=== PATIENT | female | born 1990 | race Caucasian/White ===

== ENCOUNTER 2018-03-21 18:36 | Emergency (ER) | payer MEDICAID, OTHER ==
[~2018-03-21] VITALS: Ht 157.5 cm; Wt 77.1 kg
[2018-03-21 18:50] VITALS: BP_SYST 141
[2018-03-21 19:37] LABS: BASOPHILS # (AUTO) 0.1 K/uL (0.0-0.2); EOSINOPHILS # (AUTO) 0.2 K/uL (0.0-0.4); EOSINOPHILS % (AUTO) 3.4 % (0.0-4.0); HEMATOCRIT 38.5 % (36-48); LYMPHOCYTES # (AUTO) 2.2 K/uL (1.0-5.5); LYMPHOCYTES % (AUTO) 31.8 % (20.5-51.5); MEAN CORPUSCULAR HEMOGLOBIN 27 pg (27-31); MEAN CORPUSCULAR HGB CONC 34 % (32-36); MEAN CORPUSCULAR VOLUME 82 fL (79.0-98.0); MONOCYTES # (AUTO) 0.3 K/uL (0.0-1.0); MONOCYTES % (AUTO) 5.1 % (1.7-9.3); NEUTROPHILS % (AUTO) 58.7 % (40.0-70.0); PLATELET COUNT (AUTO) 323 K/uL (130-430); RED BLOOD CELL COUNT(AUTO) 4.73 MIL/uL (4.2-6.2); RED CELL DISTRIBUTION WIDTH 13.7 % (9.0-15.0); WHITE BLOOD COUNT (AUTO) 6.8 K/uL (4.8-10.8)
[2018-03-21] MEDS ORDERED: cefTRIAXone 1 GM in LIDOCAINE 1%, 20 ML MDV 2.1 ML IM ONE (19:45)
[2018-03-21] MEDS ORDERED: IBUPROFEN 800 MG TABLET PO ONE (19:45)
[2018-03-21 19:54] LABS: CALCIUM 8.9 mg/dL (8.4-11.0); CREATININE 0.83 mg/dL (0.55-1.30); POTASSIUM 3.8 mmol/L (3.5-5.1)
[2018-03-21 20:11] VITALS: BP_SYST 132
== END 2018-03-21 20:11 | disposition home or self-care (01) ==
LOC: SED 18:36
DX: H66.92 Otitis media, unspecified, left ear (principal); H60.502 Unspecified acute noninfective otitis externa, left ear; R03.0 Elevated blood-pressure reading, without diagnosis of hypertension
CPT/HCPCS: 36415; 80048; 85025; 96372; 99284; J0696; J2001

== ENCOUNTER 2018-06-23 08:07 | Emergency (ER) | payer MEDICAID, OTHER ==
[~2018-06-23] VITALS: Ht 157.5 cm; Wt 83.9 kg
[2018-06-23 08:07] VITALS: BP_SYST 131
--- NOTE | 2018-06-23 08:07 | NUR ---
BROUGHT BACK TO BED #8 AND TRIAGED. REPORT GIVEN TO CHERI
--- NOTE | 2018-06-23 08:22 | NUR ---
MD HURST AT BEDSIDE.
--- NOTE | 2018-06-23 08:44 | NUR ---
PATIENT TAKEN TO X-RAY.
[2018-06-23] MEDS ORDERED: LIDOCAINE 1% 10 MG/ML, 20 ML MDV INJ ONE (08:45)
[2018-06-23] MEDS ORDERED: LIDOCAINE MPF 1% 50 MG/5 ML AMP INJ ONE (08:45)
--- NOTE | 2018-06-23 09:08 | NUR ---
Medication given by MD orona at bedside.
[2018-06-23 09:40] VITALS: BP_SYST 131
--- NOTE | 2018-06-23 09:40 | NUR ---
Thumb spice velcro splint applied to left wrist.
--- NOTE | 2018-06-23 09:46 | NUR ---
Patient given written and verbal discharge instructions and verbalizes understanding. ER MD discussed with patient the results and treatment provided. Patient in stable condition. ID arm band removed. Rx of Naproxen given. Patient educated on pain management and to follow up with PMD. Pain Scale . Opportunity for questions provided and answered. Medication side effect fact sheet provided.
== END 2018-06-23 09:46 | disposition home or self-care (01) ==
LOC: SED 08:07
DX: M67.432 Ganglion, left wrist (principal); M65.4 Radial styloid tenosynovitis [de Quervain]
CPT/HCPCS: 20612; 29130; 73100; 99284; J2001

== ENCOUNTER 2020-08-02 15:56 | Emergency (ER) | payer MEDICAID, OTHER ==
[~2020-08-02] VITALS: Ht 157.5 cm; Wt 84.4 kg
[2020-08-02 16:03] VITALS: BP_SYST 130
--- NOTE | 2020-08-02 16:03 | NUR ---
PPatient to ER bed 8 to gown for evaluation. Side rails up. Report given to KATHERINE HOWARD.
--- NOTE | 2020-08-02 16:05 | NUR ---
Patient presented to ER C/O of Facial numbness. Patient ambulatory to ER, A&Ox4, afebrile, skin pink & warm, pain 4/10, denies N/V/D Patient states lip numbness x2 days, chin & forehead numbness started today, forehead pain 4/10.
--- NOTE | 2020-08-02 16:08 | NUR ---
ER at bedside examining patient.
--- NOTE | 2020-08-02 17:35 | NUR ---
ER Dr. Najera at bedside discussing treatment with patient.
[2020-08-02 17:45] VITALS: BP_SYST 131
--- NOTE | 2020-08-02 17:45 | NUR ---
Patient given written and verbal discharge instructions and verbalizes understanding. ER MD discussed with patient the results and treatment provided. Patient in stable condition. ID arm band removed. NO Rx given. Patient educated on pain management and to follow up with PMD. Pain Scale 3/10. Opportunity for questions provided and answered. Medication side effect fact sheet provided.
== END 2020-08-02 17:45 | disposition home or self-care (01) ==
LOC: SED 15:56
DX: R20.0 Anesthesia of skin (principal)
CPT/HCPCS: 70450-TC; 76376; 99284

== ENCOUNTER 2020-10-06 13:18 | Emergency (ER) | payer MEDICAID ==
[~2020-10-06] VITALS: Ht 157.5 cm; Wt 74.8 kg
[2020-10-06 13:33] VITALS: BP_SYST 125
[2020-10-06 14:13] LABS: BASOPHILS # (AUTO) 0.1 K/uL (0.0-0.2); BASOPHILS % (AUTO) 0.9 % (0.0-2.0); EOSINOPHILS # (AUTO) 0.1 K/uL (0.0-0.4); EOSINOPHILS % (AUTO) 2.2 % (0.0-4.0); HEMATOCRIT 37.1 % (36-48); HEMOGLOBIN 12.4 g/dL (12.0-16.0); LYMPHOCYTES # (AUTO) 1.4 K/uL (1.0-5.5); LYMPHOCYTES % (AUTO) 21.4 % (20.5-51.5); MEAN CORPUSCULAR HEMOGLOBIN 28 pg (27-31); MEAN CORPUSCULAR HGB CONC 34 % (32-36); MEAN CORPUSCULAR VOLUME 84 fL (79.0-98.0); MONOCYTES # (AUTO) 0.4 K/uL (0.0-1.0); MONOCYTES % (AUTO) 5.8 % (1.7-9.3); NEUTROPHILS # (AUTO) 4.5 K/uL (1.8-7.7); NEUTROPHILS % (AUTO) 69.7 % (40.0-70.0); PLATELET COUNT (AUTO) 252 K/uL (130-430); WHITE BLOOD COUNT (AUTO) 6.4 K/uL (4.8-10.8)
[2020-10-06 15:51] VITALS: BP_SYST 122
== END 2020-10-06 15:51 | disposition home or self-care (01) ==
LOC: SED 13:18
DX: O20.0 Threatened abortion (principal); Z3A.01 Less than 8 weeks gestation of pregnancy
CPT/HCPCS: 36415; 76805-TC; 81025; 84702-TC; 85025; 86900; 86901; 99284; J7030